=== PATIENT | female | born 1965 | race Caucasian/White ===

== ENCOUNTER 2018-12-11 10:07 | Emergency (ER) | payer MEDICARE ==
[~2018-12-11] VITALS: Ht 147.3 cm; Wt 49.9 kg
[2018-12-11] MEDS ORDERED: SODIUM CHLORIDE 0.9% 1000ML 1,000 ML IV STA (10:27)
[2018-12-11] MEDS ORDERED: MORPHINE SULFATE INJ 4 MG/ML INJ 1ML IV ONE ×2 (11:00→12:00)
[2018-12-11 11:26] LABS: BILIRUBIN,URINE MODERATE (NEGATIVE); CLARITY,URINE CLOUDY (CLEAR); COLOR,URINE ORANGE (YELLOW); KETONES,URINE 1+ (NEGATIVE); LEUKOCYTE ESTERASE ,URINE TRACE (NEGATIVE); NITRITE,URINE NEGATIVE (NEGATIVE); PROTEIN,URINE DIPSTICK 2+ (NEGATIVE); URINE UROBILINOGEN 1 mg/dL (0.2 - 1)
--- NOTE | 2018-12-11 11:28 | Diagnostic Imaging Report ---
Examination: Single AP view of the chest. COMPARISON: None. INDICATION: High blood pressure IMPRESSION: 1. Lines and Tubes: None 2. Lungs are grossly clear. No consolidation or effusion. 3. Cardiomediastinal silhouette is normal. Pulmonary vasculature is normal. 4. No acute bony abnormalities. Signed by: Dr. Yobani Millard M.D. on 12/11/2018 11:25 AM
[2018-12-11] MEDS ORDERED: ONDANSETRON HCL INJ 2MG/ML 2ML 2 MG/ML VIAL IV ONE (11:30)
[2018-12-11 11:35] LABS: BASOPHILS % 0.2 % (0.0-1.0); EOSINOPHILS % 0.1 % (0.0-6.0); HEMATOCRIT 48.1 % (34.2-44.1); HEMOGLOBIN 17.5 g/dL (12.0-16.0); LYMPHOCYTES # (AUTO) 2.5 (1.0-3.2); LYMPHOCYTES % 15.2 % (18.0-39.1); MEAN CORPUSCULAR HEMOGLOBIN 32.8 pg (28-32); MEAN CORPUSCULAR HGB CONC 36.4 g/dL (31-35); MEAN CORPUSCULAR VOLUME 90.1 fL (81-99); MONOCYTES # (AUTO) 1.1 (0.2-0.8); MONOCYTES % 6.9 % (4.4-11.3); NEUTROPHILS # (AUTO) 12.5 (2.1-6.9); PLATELET COUNT 255 x10e3/uL (140-360); RED BLOOD COUNT 5.34 x10e6/uL (3.6-5.1); RED CELL DISTRIBUTION WIDTH 12.2 % (11.7-14.4)
[2018-12-11 11:45] LABS: PREGNANCY TEST, URINE NEGATIVE (NEGATIVE)
[2018-12-11 11:53] LABS: BACTERIA,URINE FEW /HPF; EPITHELIAL CELLS,URINE MANY /LPF
[2018-12-11 11:55] LABS: ALANINE AMINOTRANSFERASE 23 IU/L (0-55); ALBUMIN 4.7 g/dL (3.5-5.0); ALBUMIN/GLOBULIN RATIO 1.5 (0.8-2.0); ALKALINE PHOSPHATASE 194 IU/L (40-150); AMYLASE 18 U/L (25-125); BLOOD UREA NITROGEN 11 mg/dL (7-26); BUN/CREATININE RATIO 13 (6-25); CARBON DIOXIDE 25 mmol/L (22-29); CREATINE KINASE 75 IU/L (29-168); CREATININE, SERUM 0.86 mg/dL (0.57-1.11); EST GLOMERULAR FILTRATION RATE > 60 ML/MIN (60-); GLUCOSE 122 mg/dL (74-118); INR 0.97; LIPASE 21 U/L (8-78); MAGNESIUM 1.7 MG/DL (1.3-2.1); PROTHROMBIN TIME 13.4 seconds (11.9-14.5)
[2018-12-11 11:56] LABS: PARTIAL THROMBOPLASTIN TIME 32.6 seconds (23.8-35.5)
[2018-12-11] MEDS ORDERED: LORAZEPAM INJ 2 MG/ML VIAL IV ONE (12:00)
[2018-12-11 12:01] LABS: BENZODIAZEPINES SCREEN,URINE POSITIVE (NEGATIVE)
[2018-12-11 12:02] LABS: AMPHETAMINES SCREEN,URINE NEGATIVE (NEGATIVE); PHENCYCLIDINE SCREEN,URINE NEGATIVE (NEGATIVE)
[2018-12-11 12:19] LABS: CHLORIDE 101 mmol/L (98-107); POTASSIUM 3.1 mmol/L (3.5-5.1); SODIUM 141 mmol/L (136-145)
[2018-12-11 12:20] LABS: ANION GAP 18.1 mmol/L (8-16)
--- NOTE | 2018-12-11 14:14 | NUR ---
PATIENT UNABLE TO GIVE NAMES OF MEDICATION SHE IS ON . GOING OVER MEDS WITH HER ON HER EXTERNAL LIST ON COMPUTER. SHE IS NOT SURE
[2018-12-11] MEDS ORDERED: POTASSIUM CHLORIDE 20 MEQ TAB CR PO ONE (15:00)
[2018-12-11] MEDS ORDERED: SODIUM CHLORIDE 0.9% 50ML 50 ML ONE (15:04)
[2018-12-11] MEDS ORDERED: IOPAMIDOL 370 MG/ML 200 ML INFUS..BTL INJ ONE (15:04)
--- NOTE | 2018-12-11 15:58 | Diagnostic Imaging Report ---
EXAM: CT of the abdomen and pelvis WITH contrast HISTORY: upper abdominal pain, history of cholecystectomy, , colon resection COMPARISON: None available. TECHNIQUE: The abdomen and pelvis were scanned utilizing a multidetector helical scanner. Coronal and sagittal reformats are provided. PROTOCOL: Routine IV CONTRAST: 100 cc of Isovue-370. ORAL CONTRAST: Water RADIATION DOSE: Total DLP: 191.27 mGy*cm Estimated effective dose: (DLP x 0.015 x size factor) Dose modulation, iterative reconstruction, and/or weight based adjustment of the mA/kV was utilized to reduce the radiation dose to as low as reasonably achievable. COMPLICATIONS: None FINDINGS: LOWER THORAX: A 4 mm calcified granuloma within the left lower lobe. HEPATOBILIARY: Small hyperdense focus adjacent to the falciform ligament, compatible with focal fatty infiltration. Biliary ductal dilation, most notably centrally. Enlarged common bile duct, measuring up to 2.2 cm in diameter. Questionable 5 mm noncalcified subtle density at the distal common bile duct (coronal image 36). SPLEEN: No splenomegaly. PANCREAS: No focal mass. Diffuse dilation of the pancreatic ducts. ADRENALS: No discrete adrenal nodule. KIDNEYS/URETERS: No hydronephrosis, stones, or definite solid mass lesions. A 9 mm hypodensity at the posterior interpolar region of the left kidney is too small to characterize, statistically most likely represents a small cyst. PELVIC ORGANS/BLADDER: The visualized pelvic organs appear unremarkable. GI TRACT: The stomach is predominantly decompressed, which limits evaluation. Otherwise, no bowel dilation or wall thickening. The appendix is normal. PERITONEUM / RETROPERITONEUM: No free air or fluid. LYMPH NODES: No pathologically enlarged lymph node. VESSELS: Diffuse scattered atherosclerotic vascular calcifications. BONES: No aggressive osseous lesion or acute fracture. Multifocal degenerative changes. SOFT TISSUES: Unremarkable. IMPRESSION: Intrahepatic, common bile duct, and pancreatic ductal dilation. Although at least some of these findings may be attributable to reservoir effect status post cholecystectomy, given the extent of the dilation and questionable 5 mm noncalcified distal common bile duct intraluminal focus, recommend correlation with laboratory values for biliary obstruction and a follow-up MRCP of the abdomen with and without contrast for further evaluation. Signed by: Dr. Elgin Castañeda D.O., M.M.M. on 12/11/2018 3:54 PM
[2018-12-11] MEDS ORDERED: POTASSIUM CHLORIDE 20 MEQ TAB CR PO NR (16:15)
[2018-12-11] MEDS ORDERED: ZOFRAN4 MG SL (16:25)
[2018-12-11] MEDS ORDERED: CEFDINIR300 MG PO (16:26)
[2018-12-11] MEDS ORDERED: CEFTRIAXONE SOD 1 GM/NS 50 ML 50 ML IV NR (16:30)
--- NOTE | 2018-12-11 16:52 | NUR ---
PATIENT UPSET THAT THE DOCTOR WILL NOT WRITE FOR [facility]. THREATENING TO TAKE OUT EJ. EXPLAINED TO HER PLEASE DO NOT DO THAT BECAUSE BLOOD COULD START RUNNING OUT. PATIENT AGGITATED AND ANGRY. EMOTIONAL SUPPORT GIVEN. SHE STATED"YALL DON'T FUCKING CARE ABOUT ME". ENCOURAGED HER TO DO HER FOLLOW UP WITH HER DOCTORS AND PAIN MANAGEMENT. DAUGHTER PICKED HER UP AT DISCHARGE
== END 2018-12-11 16:57 | disposition home or self-care (01) ==
LOC: ER 10:07
DX: R11.2 Nausea with vomiting, unspecified (principal); R10.13 Epigastric pain; N30.90 Cystitis, unspecified without hematuria; I10 Essential (primary) hypertension; J44.9 Chronic obstructive pulmonary disease, unspecified; F41.9 Anxiety disorder, unspecified; E87.6 Hypokalemia; F10.21 Alcohol dependence, in remission; F17.200 Nicotine dependence, unspecified, uncomplicated; Z86.73 Personal history of transient ischemic attack (TIA), and cerebral infarction without residual deficits
CPT/HCPCS: 36415; 71045; 74177; 80053; 80307; 81001; 81025; 82150; 82550; 82553; 83605; 83690; 83735; 84484; 85025; 85379; 85610; 85730; 93005; 99284; J2060; J2270; J2405; J7030; Q9967

== ENCOUNTER 2022-09-07 09:00 | Emergency (ER) | payer MEDICARE ==
[~2022-09-07] VITALS: Ht 147.3 cm; Wt 49.9 kg
[~2022-09-07 09:00] MED LIST: CEFDINIR300 MG PO; ZOFRAN4 MG SL
== END 2022-09-07 10:40 | disposition home or self-care (01) ==
LOC: ER 09:03
DX: R04.0 Epistaxis (principal); S00.83XA Contusion of other part of head, initial encounter; R51.9 Headache, unspecified; W18.39XA Other fall on same level, initial encounter; Y92.89 Other specified places as the place of occurrence of the external cause; I10 Essential (primary) hypertension; J44.9 Chronic obstructive pulmonary disease, unspecified; F41.9 Anxiety disorder, unspecified; Z86.73 Personal history of transient ischemic attack (TIA), and cerebral infarction without residual deficits; Z86.79 Personal history of other diseases of the circulatory system
CPT/HCPCS: 70450; 99283